=== PATIENT | female | born 1960 | race Two or more races ===

== ENCOUNTER 2020-09-06 19:58 | Emergency (ER) | payer OTHER ==
[2020-09-06 20:04] VITALS: BP 118/65; PULSE 62; TEMP 98.6; BMI 23.2
== END 2020-09-06 20:51 | disposition home or self-care (01) ==
LOC: JERFT 19:58
DX: S40.262A Insect bite (nonvenomous) of left shoulder, initial encounter (principal)
CPT/HCPCS: 99281-25